=== PATIENT | male | born 1940 | race Hispanic/Latino ===

== ENCOUNTER 2018-06-17 13:30 | Emergency (ER) | payer MEDICARE ==
[2018-06-17 13:53] VITALS: BP 142/75
[2018-06-17] MEDS ORDERED: NACL 0.9% 1000 ML 1,000 ML IV ONE ×2 (13:54→15:49)
--- NOTE | 2018-06-17 13:55 | Emergency Department Report ---
Chief Complaint: Medical Clearance Stated Complaint: LOW KIDNEY FUNCTION/DEHYDRATED Time Seen by Provider: 06/17/18 13:49 - HPI History of Present Illness: PT HAD STOMACH BUG ON WEDNESDAY NIGHT SEVERE N/V WENT TO PCP WHO HERVE BLOOD MD CALLED PT AND TOLD HIM TO COME TO ER DUE TO RENAL FUNCTION HE ALSO HAS FX RIB DX AT PCP THIS WEEK VSS AMBULATORY NON TOXIC ABD ENLARGED PMH HTN CVA CKD GERD HPLD GOUT FX RIB NO CIG NO ETOH NO DRUGS PSH SHOULDER- ROTATOR CUFF RX ASA STATIN LISINOPRIL BYSTOLIC LASIX ALLOPURINOL LABS FLUID MSE COMPLETED MSE screening note: Focused history and physical exam performed. Due to findings the following was ordered: ED Disposition for MSE Condition: Stable
[2018-06-17 14:23] LABS: Basophils % (Auto) 0.6 % (0.0-1.8); Eosinophils # (Auto) 0.2 K/mm3 (0.0-0.4); Eosinophils % (Auto) 2.9 % (0.0-4.3); Hematocrit 34.6 % (35.5-45.6); Hemoglobin 11.7 gm/dl (11.8-15.2); Lymphocytes # (Auto) 1.2 K/mm3 (1.2-5.4); Lymphocytes % (Auto) 14.1 % (13.4-35.0); Mean Corpuscular HGB Conc 34 % (32-34); Mean Corpuscular Volume 98 fl (84-94); Monocytes # (Auto) 0.8 K/mm3 (0.0-0.8); Monocytes % (Auto) 9.2 % (0.0-7.3); Platelet Count 325 K/mm3 (140-440); Red Blood Count 3.52 M/mm3 (3.65-5.03); Red Cell Distribution Width 13.7 % (13.2-15.2)
[2018-06-17 15:04] LABS: Albumin 4.2 g/dL (3.9-5); Calcium 9.6 mg/dL (8.4-10.2)
--- NOTE | 2018-06-17 15:57 | Emergency Department Report ---
ED General Adult HPI - General Chief complaint: Medical Clearance Stated complaint: LOW KIDNEY FUNCTION/DEHYDRATED Time Seen by Provider: 06/17/18 13:49 Source: patient Mode of arrival: Ambulatory Limitations: No Limitations - History of Present Illness Initial comments: Patient is a 77-year-old male who earlier this week from Wednesday to Wednesday was having multiple episodes of nausea vomiting. Patient had some dizziness as well to time and did trip and fall and hit his right ribs on a commode. Patient suffered a rib fracture. Patient saw his primary care physician and had labs drawn. Since the nausea vomiting has subsided patient even drink some Pedialyte but he was called today to come to the emergency department because his kidney function had worsened. Patient has some low-lying kidney dysfunction but is not on dialysis. I spoke to his primary care physician Dr. ward and was told that his BUN creatinine was 88 and 2.8 respectively. Patient states he is able to drink is no longer having nausea vomiting and has no dizziness at this time. Patient actually was doing yardwork while he was called to come to the hospital. Severity scale (0 -10): 0 - Related Data Home Medications Medication Instructions Recorded Confirmed Last Taken Allopurinol [Zyloprim] 100 mg PO QDAY 05/13/17 05/13/17 Unknown Clopidogrel [Plavix] 75 mg PO QDAY 05/13/17 05/13/17 Unknown Ezetimibe [Zetia] 10 mg PO QDAY 05/13/17 05/13/17 Unknown Lisinopril [Zestril TAB] 40 mg PO QDAY 05/13/17 05/13/17 Unknown Nebivolol HCl [Bystolic] 20 mg PO QDAY 05/13/17 05/13/17 Unknown Pantoprazole [Protonix] 40 mg PO QDAY 05/13/17 05/13/17 Unknown Simvastatin (Nf) [Zocor TAB] 20 mg PO QHS 05/13/17 05/13/17 Unknown Zolpidem Tartrate [Ambien] 5 mg PO QHS 05/13/17 05/13/17 Unknown hydroCHLOROthiazide [HCTZ] 25 mg PO QDAY 05/13/17 05/13/17 Unknown traMADol [Ultram] 50 mg PO Q6HR PRN 05/13/17 05/13/17 Unknown Previous Rx's Medication Instructions Recorded Last Taken Type Folic Acid 1 tab PO QDAY #30 tab 05/16/17 Unknown Rx Multivitamin Tab [Multiple Vitamin 1 each PO ONCE #30 tablet 05/16/17 Unknown Rx TAB (Theragran)] Thiamine [Vitamin B-1] 100 mg PO QDAY #30 tablet 05/16/17 Unknown Rx Allergies Allergy/AdvReac Type Severity Reaction Status Date / Time No Known Allergies Allergy Verified 11/04/15 11:41 ED Review of Systems ROS: Stated complaint: LOW KIDNEY FUNCTION/DEHYDRATED Other details as noted in HPI Comment: All other systems reviewed and negative ED Past Medical Hx - Past Medical History Previous Medical History?: Yes Hx Hypertension: Yes Hx CVA: Yes (2006) Hx Heart Attack/AMI: No Hx Congestive Heart Failure: No Hx Diabetes: No Hx GERD: Yes Hx Renal Disease: Yes (ANALY) Hx Asthma: No Hx COPD: No - Surgical History Past Surgical History?: Yes Additional Surgical History: Prostate. right rotator cuff - Social History Smoking Status: Never Smoker Substance Use Type: Alcohol - Medications Home Medications: Home Medications Medication Instructions Recorded Confirmed Last Taken Type Allopurinol [Zyloprim] 100 mg PO QDAY 05/13/17 05/13/17 Unknown History Clopidogrel [Plavix] 75 mg PO QDAY 05/13/17 05/13/17 Unknown History Ezetimibe [Zetia] 10 mg PO QDAY 05/13/17 05/13/17 Unknown History Lisinopril [Zestril TAB] 40 mg PO QDAY 05/13/17 05/13/17 Unknown History Nebivolol HCl [Bystolic] 20 mg PO QDAY 05/13/17 05/13/17 Unknown History Pantoprazole [Protonix] 40 mg PO QDAY 05/13/17 05/13/17 Unknown History Simvastatin (Nf) [Zocor TAB] 20 mg PO QHS 05/13/17 05/13/17 Unknown History Zolpidem Tartrate [Ambien] 5 mg PO QHS 05/13/17 05/13/17 Unknown History hydroCHLOROthiazide [HCTZ] 25 mg PO QDAY 05/13/17 05/13/17 Unknown History traMADol [Ultram] 50 mg PO Q6HR PRN 05/13/17 05/13/17 Unknown History Folic Acid 1 tab PO QDAY #30 tab 05/16/17 Unknown Rx Multivitamin Tab [Multiple Vitamin 1 each PO ONCE #30 tablet 05/16/17 Unknown Rx TAB (Theragran)] Thiamine [Vitamin B-1] 100 mg PO QDAY #30 tablet 05/16/17 Unknown Rx ED Physical Exam - General Limitations: No Limitations General appearance: alert, in no apparent distress - Head Head exam: Present: atraumatic, normocephalic - Eye Eye exam: Present: normal appearance - ENT ENT exam: Present: mucous membranes moist - Neck Neck exam: Present: normal inspection - Respiratory Respiratory exam: Present: normal lung sounds bilaterally, chest wall tenderness (right ribs). Absent: respiratory distress, wheezes, rales, rhonchi - Cardiovascular Cardiovascular Exam: Present: regular rate, normal rhythm. Absent: systolic murmur, diastolic murmur, rubs, gallop - GI/Abdominal GI/Abdominal exam: Present: soft, normal bowel sounds. Absent: distended, tenderness, guarding, rebound - Rectal Rectal exam: Present: deferred - Extremities Exam Extremities exam: Present: normal inspection - Back Exam Back exam: Present: normal inspection - Neurological Exam Neurological exam: Present: alert, oriented X3 - Psychiatric Psychiatric exam: Present: normal affect, normal mood - Skin Skin exam: Present: warm, dry, intact, normal color. Absent: rash ED Course Vital Signs 06/17/18 13:50 Temperature 97.8 F Pulse Rate 78 Respiratory 14 Rate Blood Pressure 142/75 O2 Sat by Pulse 98 Oximetry ED Medical Decision Making - Lab Data Result diagrams: 06/17/18 14:13 06/17/18 14:13 Labs 06/17/18 06/17/18 14:13 14:13 WBC 8.1 RBC 3.52 L Hgb 11.7 L Hct 34.6 L MCV 98 H MCH 33 H MCHC 34 RDW 13.7 Plt Count 325 Lymph % (Auto) 14.1 [place] % (Auto) 9.2 H Eos % (Auto) 2.9 Baso % (Auto) 0.6 Lymph # 1.2 [place] # 0.8 Eos # 0.2 Baso # 0.0 Seg Neutrophils % 73.2 H Seg Neutrophils # 6.0 Sodium 141 Potassium 4.0 Chloride 103.5 Carbon Dioxide 22 Anion Gap 20 BUN 67 H Creatinine 1.9 H Estimated GFR 35 BUN/Creatinine Ratio 35 Glucose 104 H Calcium 9.6 Phosphorus 2.60 Magnesium 1.70 Total Bilirubin 0.20 AST 16 ALT 19 Alkaline Phosphatase 48 Total Protein 6.9 Albumin 4.2 Albumin/Globulin Ratio 1.6 Lipase 242 H - Medical Decision Making Patient was given 2 L of IV fluids for hydration. He has been a creatinine before fluids today had arteries began to improve from the labs that were drawn at his primary care physician's office. I spoke to Dr. Ruiz at 1550 and he states he'll follow the patient in his office. Critical care attestation.: If time is entered above; I have spent that time in minutes in the direct care of this critically ill patient, excluding procedure time. ED Disposition Clinical Impression: Acute kidney injury, Dehydration Disposition: DC-01 TO HOME OR SELFCARE Is pt being admited?: No Does the pt Need Aspirin: No Condition: Fair Instructions: Dehydration (ED) Time of Disposition: 15:56
== END 2018-06-17 17:15 | disposition home or self-care (01) ==
LOC: ED 13:30
DX: N17.9 Acute kidney failure, unspecified (principal); E86.0 Dehydration; I10 Essential (primary) hypertension; K21.9 Gastro-esophageal reflux disease without esophagitis; Z86.73 Personal history of transient ischemic attack (TIA), and cerebral infarction without residual deficits
CPT/HCPCS: 36415; 80053; 83690; 83735; 84100; 85025; 96360; 96361; 99283; J7030